=== PATIENT | male | born 1970 | race Caucasian/White ===

== ENCOUNTER 2019-06-14 05:31 | Emergency (ER) | payer MEDICAID ==
[~2019-06-14] VITALS: Ht 157.5 cm; Wt 67.2 kg
[2019-06-14 05:34] VITALS: BP 130/72
--- NOTE | 2019-06-14 05:34 | NUR ---
visual acuity both eye 20/20, rt eye 20/20, left eye 20/25
--- NOTE | 2019-06-14 05:34 | NUR ---
to bed # 08 ambulatory
--- NOTE | 2019-06-14 05:45 | NUR ---
48 Y/O MALE C/O LT EYE PAIN AND ITCHING X 1 DAY. PT STATES 3/10 PAIN TO LT EYE. DENIES BLURRED VISION. STATES CLEAR DRAINAGE AND REDNESS TO EYE. PT SITTING IN CHAIR, RR EVEN AND UNLABORED. VSS MEDHX: DENIES ALLERGIES: NKA
--- NOTE | 2019-06-14 07:21 | NUR ---
DR. CORONEL AT BEDSIDE.
[2019-06-14 07:43] VITALS: BP 123/70
--- NOTE | 2019-06-14 07:45 | NUR ---
Patient discharged with v/s stable. Written and verbal after care instructions given and explained. Patient alert, oriented and verbalized understanding of instructions. Ambulatory with steady gait. All questions addressed prior to discharge. ID band removed. Patient advised to follow up with PMD. Rx of MOTRIN 600MG given. Patient educated on indication of medication including possible reaction and side effects. Opportunity to ask questions provided and answered. PATIENT GIVEN REFERRAL TO [facility].
== END 2019-06-14 07:45 | disposition home or self-care (01) ==
LOC: MED 05:31
DX: H57.12 Ocular pain, left eye (principal)
CPT/HCPCS: 99282